=== PATIENT | male | born 1980 | race Caucasian/White ===

== ENCOUNTER 2021-08-01 14:23 | Emergency (ER) | payer OTHER, BC, SELFPAY ==
[2021-08-01 14:57] VITALS: BP 135/77; PULSE 96; RESP 16; TEMP 36.8; O2SAT 99
--- NOTE | 2021-08-01 15:24 | PC.NURSE ---
Pt up to desk on his cell phone has phone on his left shoulder holding it between his left shoulder and face. writing a note with is right hand without difficulty.
--- NOTE | 2021-08-01 17:26 | ED.GENADULT ---
HPI - General Adult General Chief complaint: Neck Pain/Injury Stated complaint: neck pain down to arm x 1 day Time Seen by Provider: 08/01/21 16:01 Source: patient Mode of arrival: ambulatory Limitations: no limitations History of Present Illness HPI narrative: Patient presents with chief complaint of right upper dental pain to a decay and broken tooth as well as pain to the right side of his neck that goes down his arm. 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 Patient states that his mom has called multiple dentists as the tooth needs to be removed but they want him to be on antibiotics prior to the appointment. Patient has not had any fevers, chills, nausea, vomiting or diarrhea or any other symptoms. Related Data Allergies Allergy/AdvReac Type Severity Reaction Status Date / Time No Known Allergies Allergy Verified 08/01/21 15:56 Review of Systems Review of Systems: CONSTITUTIONAL: Denies fever, chills, or sweats. EYES: Denies visual changes, redness, or discharge. ENT: Reports dental pain denies rhinorrhea, congestion, sore throat, or otalgia. CARDIOVASCULAR: Denies chest pain, palpitations, or edema. RESPIRATORY: Denies cough or dyspnea. GASTROINTESTINAL: Denies abdominal pain, nausea, vomiting, or diarrhea. GENITOURINARY: Denies dysuria or hematuria. SKIN: Denies rash or itching. MUSCULOSKELETAL: Reports neck and shoulder pain denies back pain, joint pain, or myalgia. NEUROLOGIC: Denies headache, numbness, dizziness, or weakness. PSYCHIATRIC: Denies anxiety or depression. Exam Narrative: GENERAL: Well-appearing, well-nourished, and in no acute distress. HEAD: Normocephalic, atraumatic. EYES: PERRLA and EOMI. ENT: Nares clear, no rhinorrhea or epistaxis. Mucous membranes moist. Oropharynx without tonsillar hypertrophy exudate or other lesions. Bilateral TMs pearly jaramillo nonbulging. Patient has tooth decay and missing dentition throughout. The tooth in question is decayed and broken. There is no abscess noted to the gumline. Airway is patent NECK: Supple. Range of motion intact. Spasm noted to the upper right trapezius. Range of motion intact to the neck and shoulder. CHEST: Clear to auscultation. No respiratory distress. No wheezes rales or rhonchi HEART: Regular rate and rhythm. No murmur heard. Normal peripheral pulses. EXTREMITIES: Normal range of motion. No edema. SKIN: Warm, dry, no rash. NEURO: No focal deficits. Alert and oriented x3. PSYCH: Normal mood and affect. Course Vital Signs Vital signs: Vital Signs Temperature 98.2 F 08/01/21 14:57 Pulse Rate 96 08/01/21 14:57 Respiratory Rate 16 08/01/21 14:57 Blood Pressure 135/77 08/01/21 14:57 Pulse Oximetry 99 08/01/21 14:57 Temperature 98.2 F 08/01/21 14:57 Pulse Rate 96 08/01/21 14:57 Respiratory Rate 16 08/01/21 14:57 Blood Pressure 135/77 08/01/21 14:57 Pulse Oximetry 99 08/01/21 14:57 Medical Decision Making MDM Narrative Medical decision making narrative: Patient has been instructed to follow-up with dentist for definitive dental treatment. Patient will be prescribed Augmentin. 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 Patient was prescribed naproxen and cyclobenzaprine. Patient instructed to follow-up with primary care for further evaluation and management if symptoms persist. Patient to return to the emergency department if he has any emergent symptoms.Patient declines toradol injection in the ER for discomfort. Vital Signs Vital Signs: Vital Signs Temperature 98.2 F 08/01/21 14:57 Pulse Rate 96 08/01/21 14:57 Respiratory Rate 16 08/01/21 14:57 Blood Pressure 135/77 08/01/21 14:57 Pulse Oximetry 99 08/01/21 14:57 Temperature 98.2 F 08/01/21 14:57 Pulse Rate 96 08/01/21 14:57 Respiratory Rate 16 08/01/21 14:57 Blood Pressure 135/77 08/01/21 14
== END 2021-08-01 17:41 | disposition home or self-care (01) ==
PROVIDERS: Emergency Provider Emergency Medicine
DX: K08.89 Other specified disorders of teeth and supporting structures (principal); M43.6 Torticollis
CPT/HCPCS: 99283

== ENCOUNTER 2022-10-16 11:27 | Emergency (ER) | payer OTHER, BC, SELFPAY ==
[2022-10-16 11:30] VITALS: BP 130/85; PULSE 82; RESP 16; TEMP 37; O2SAT 99
--- NOTE | 2022-10-16 12:04 | ED.GENADULT ---
HPI - General Adult General Chief complaint: Urogenital-Male Stated complaint: problem in private area he wants looked at Time Seen by Provider: 10/16/22 11:54 History of Present Illness HPI narrative: The patient is a 42-year-old male with no significant past medical history. He has not had any sexually transmitted diseases. He did have unprotected intercourse with a woman 7 months ago. Three months later, he noticed two genital sores. They have been present since that time. They have grown somewhat since that time. One is located at the symphysis pubis and 1 is in the left inner thigh region. They are not itchy. There is no penile discharge. There is no urinary frequency urgency or dysuria. No back pain. No other complaints. No fevers. No previous history of genital warts. the patient has had a fine rash in both intertriginous joints of the groin for which he uses talc-based [employer] baby powder Of note, 1 of his friends also had intercourse with that same woman and developed genital warts. He went to a physician who gave him a prescription to treat the genital warts. The patient desires the same. No known gonorrhea are or chlamydia diagnosis. No known herpes simplex diagnosis. Related Data Allergies Allergy/AdvReac Type Severity Reaction Status Date / Time No Known Allergies Allergy Verified 10/16/22 12:01 Review of Systems Review of Systems: All systems reviewed & are unremarkable except as noted in HPI and below Constitutional: Constitutional: Reports no additional constitutional complaints, Denies anorexia, Denies body ache(s), Denies chills, Denies excessive sweating, Denies fatigue, Denies fever(s), Denies frequent falls, Denies headache(s), Denies malaise and Denies poor appetite Eyes: Eyes: Reports no additional eye complaints, Denies blurry vision, Denies change in vision, Denies irritation, Denies itchy eyes and Denies photophobia ENT: Reports system reviewed and no additional complaints, except as documented, Reports Normal hearing present, Denies change in voice, Denies dysphagia, Denies vertigo, Denies dizziness, Denies ear discharge, Denies headache(s), Denies hearing loss, Denies hoarseness, Denies nasal congestion, Denies neck pain, Denies sinus pressure, Denies sore throat and Denies throat swelling Cardiovascular: Cardiovascular: Reports no additional cardiovascular complaints, Denies chest pain, Denies syncope, Denies rapid heart rate, Denies irregular heart rhythm, Denies leg edema, Denies dyspnea and Denies slow heart rate Respiratory: Respiratory: Reports no additional respiratory complaints, Denies cough, Denies dyspnea, Denies stridor and Denies wheezing Gastrointestinal: Gastrointestinal: Reports no additional gastrointestinal complaints, Denies abdominal pain, Denies melena, Denies hematochezia, Denies dysphagia, Denies diarrhea, Denies nausea and Denies vomiting Genitourinary: Genitourinary: Denies hematuria, Denies oliguria, Reports genital lesions, Denies dysuria, Denies flank pain, Denies penile discharge, Denies testicular pain, Denies urinary frequency, Denies urinary incontinence and Denies urinary urgency Musculoskeletal: Musculoskeletal: Reports no additional musculoskeletal complaints, Denies abnormal gait, Denies back pain, Denies myalgias, Denies arthralgias, Denies joint swelling, Denies limited range of motion, Denies muscle cramps, Denies muscle weakness, Denies neck pain and Denies numbness Integumentary/Breasts: Skin/Breast: Reports system reviewed and no additional complaints, except as docu, Denies breast pain, Denies change in pigmentation, Denies pruritus, Denies erythema and Denies wounds Neurologic: Reports system reviewed and no additional complaints, except as documented, Reports Normal hearing present, Denies Abnormal speech present, Denies abnormal gait, Denies confusion, Denies vertigo, Denies dizziness, Denies syncope, Denies frequent falls, Denies headache(s), De
[2022-10-16 12:11] LABS: Add Urine Microscopic? NO; Appearance Urine Clear (Clear); Bilirubin Urine Negative (Negative); Blood Urine Negative (Negative); Color Urine Light Yellow (Yellow); Glucose Urine UA Negative (Negative); Ketones Urine Negative (Negative); Leukocyte Esterase Ur Negative LEU/UL (Negative); Nitrate Urine Negative (Negative); Protein Urine Negative (Negative); Specific Grav Ur 1.015 (1.010-1.020); Urobilinogen Urine 0.2 mg/dL (0.2-1.0)
[2022-10-16 12:52] VITALS: BP 121/75; PULSE 71; RESP 18; TEMP 36.6; O2SAT 99
== END 2022-10-16 12:54 | disposition home or self-care (01) ==
PROVIDERS: Emergency Provider Emergency Medicine
DX: A63.0 Anogenital (venereal) warts (principal); B36.9 Superficial mycosis, unspecified
CPT/HCPCS: 81003; 87491; 87591; 99283

== ENCOUNTER 2023-04-08 14:08 | Emergency (ER) | payer BC, OTHER, SELFPAY ==
[2023-04-08 14:08] VITALS: BP 130/93; PULSE 98; RESP 18; TEMP 37.6; O2SAT 97
[2023-04-08 14:19] VITALS: BP 130/93; PULSE 98; RESP 18; TEMP 37.6; O2SAT 97
--- NOTE | 2023-04-08 14:22 | ED.GENADULT ---
HPI - General Adult General Chief complaint: Urogenital-Male Stated complaint: genital warts Time Seen by Provider: 04/08/23 14:22 Source: patient Mode of arrival: ambulatory Limitations: no limitations History of Present Illness HPI narrative: Complains of general sore warts he has seen early in the year September or October and was put onImiquimod 5% cream 3 times a day which has not worked over the last 4 to 5 months. Patient here once more cream. He he says the decreased a little bit in size but not gone away. Otherwise he has no other complaints no other rash itching cough fever sore throat runny nose problems breathing problems walking talking seeing or hearing or problems eating drinking stooling or voiding swelling lumps or bumps dizziness or lightheadedness numbness or weakness or any other complaints. Past medical history denies any medical problem allergies no known drug allergies Related Data Allergies Allergy/AdvReac Type Severity Reaction Status Date / Time No Known Allergies Allergy Verified 04/08/23 14:15 Review of Systems Review of Systems: All systems reviewed & are unremarkable except as noted in HPI and below Exam Narrative: white male no apparent distress . scrotum he has got A wart on his scrotum and 2 on his left thigh there is erythema and excoriation his groin consistent with the fungal infection as well. Course Vital Signs Vital signs: Vital Signs Temperature 37.6 C 04/08/23 14:08 Pulse Rate 98 04/08/23 14:08 Respiratory Rate 18 04/08/23 14:08 Blood Pressure 130/93 H 04/08/23 14:08 Pulse Oximetry 97 04/08/23 14:08 Oxygen Delivery Room Air 04/08/23 14:08 Temperature 37.6 C 04/08/23 14:19 Pulse Rate 98 04/08/23 14:19 Respiratory Rate 18 04/08/23 14:19 Blood Pressure 130/93 H 04/08/23 14:19 Pulse Oximetry 97 04/08/23 14:19 Oxygen Delivery Room Air 04/08/23 14:19 Medical Decision Making Vital Signs Vital Signs: Vital Signs Temperature 37.6 C 04/08/23 14:08 Pulse Rate 98 04/08/23 14:08 Respiratory Rate 18 04/08/23 14:08 Blood Pressure 130/93 H 04/08/23 14:08 Pulse Oximetry 97 04/08/23 14:08 Oxygen Delivery Room Air 04/08/23 14:08 Temperature 37.6 C 04/08/23 14:19 Pulse Rate 98 04/08/23 14:19 Respiratory Rate 18 04/08/23 14:19 Blood Pressure 130/93 H 04/08/23 14:19 Pulse Oximetry 97 04/08/23 14:19 Oxygen Delivery Room Air 04/08/23 14:19 Discharge Plan Discharge Clinical Impression: Genital warts Patient Disposition: Home, Self-Care Condition: Stable Instructions: Genital Warts (ED) Additional Instructions: follow-up with primary care provider or [facility] to have these warts burned off frozen off or lasered off. Imiquimod 5% as directed 3 times per week Lamasil cream twice per day for 4 weeks Prescriptions: New imiquimod 5 % cream in packet 1 applic topical 3XW Qty: 12 0RF terbinafine HCl [Lamisil AT] 1 % cream 1 applic topical BID 28 Days Qty: 30 0RF Follow-up/Referrals: UNKNOWN,DOCTOR [Primary Care Provider] - Time of Disposition: 14:28
== END 2023-04-08 14:33 | disposition home or self-care (01) ==
PROVIDERS: Emergency Provider Emergency Medicine
DX: A63.0 Anogenital (venereal) warts (principal)
CPT/HCPCS: 99283